=== PATIENT | female | born 1945 | race Caucasian/White ===

== ENCOUNTER 2018-01-26 12:01 | Emergency (ER) | payer MEDICARE ==
[2018-01-26] MEDS ORDERED: LIDOCAINE 1%-EPI 1:100,000 30 ML VIAL SUBMUCOSAL ONE (12:24)
--- NOTE | 2018-01-26 12:32 | ED ---
Fall HPI - General Chief Complaint: Fall Stated Complaint: fall, facial injury Time Seen by Provider: 01/26/18 12:13 Source: patient Mode of arrival: ambulatory - History of Present Illness Initial Comments: Patient is a 72-year-old female presents with a chief complaint of a fall, lip laceration, facial pain. The patient states she had a mechanical fall off of a 4 inch high step. Patient states that she remembers the entire event and did not lose consciousness. Patient has been able to ambulate since the event. She denies any use of blood thinners. She is currently A&O 4. - Related Data Home Medications Medication Instructions Recorded Confirmed Levothyroxine Sodium [Synthroid] 100 mcg PO DAILY 01/26/18 01/26/18 Previous Rx's Medication Instructions Recorded Ibuprofen [Motrin] 600 mg PO Q6HR PRN #20 tab 01/26/18 Allergies Allergy/AdvReac Type Severity Reaction Status Date / Time Penicillins Allergy Rash/Hives Verified 01/26/18 12:10 Review of Systems ROS Statement: Those systems with pertinent positive or pertinent negative responses have been documented in the HPI. ROS Other: All systems not noted in ROS Statement are negative. Past Medical History Past Medical History: Cancer, Diabetes Mellitus, Hyperlipidemia, Hypertension History of Any Multi-Drug Resistant Organisms: None Reported Additional Past Surgical History / Comment(s): Hand sx , Ca of the nose Past Psychological History: No Psychological Hx Reported Smoking Status: Never smoker Past Alcohol Use History: None Reported Past Drug Use History: None Reported General Exam Limitations: no limitations General appearance: alert, in no apparent distress Head exam: Present: normocephalic, other (Patient has a laceration to her bottom left lip, and an abrasion on her nose) Eye exam: Present: normal appearance, PERRL ENT exam: Present: normal exam, mucous membranes moist Neck exam: Present: normal inspection, tenderness (Patient has mild tenderness to palpation of the left paraspinal musculature of her neck) Respiratory exam: Present: normal lung sounds bilaterally. Absent: respiratory distress Cardiovascular Exam: Present: regular rate, normal rhythm GI/Abdominal exam: Present: soft. Absent: distended, tenderness Rectal exam: Present: deferred Extremities exam: Present: normal inspection Back exam: Present: normal inspection Neurological exam: Present: alert, oriented X3, CN II-XII intact, normal gait Psychiatric exam: Present: normal affect, normal mood Skin exam: Present: warm, dry, other (Laceration on lip as described and head examination. Laceration is 1 cm in length and linear. Patient has an abrasion to the right kneecap. No pain with bearing weight.) Course Vital Signs 01/26/18 12:02 Temperature 98.8 F Pulse Rate 85 Respiratory 18 Rate Blood Pressure 182/77 O2 Sat by Pulse 98 Oximetry Medical Decision Making - Medical Decision Making Patient presents with a chief complaint of a fall on concrete. On initial evaluation, vitals are stable, patient in no acute distress. Patient denies use of blood thinners. Neurologic examination is unremarkable, patient ambulatory without assistance. Ports no other injuries. Patient to be evaluated with CT of the head, neck, and facial bones. 1:[address] evaluation of the head, neck, and face shows no acute fractures or intracranial hemorrhages. Patient was reevaluated, the patient's lip was cleaned, there appears to be very superficial laceration that does not require sutures at this time. Other injuries identified R and abrasion to the patient' s right knee, she is able to bear weight at this time, x-rays are not warranted given she does not have pain with bearing weight. At this time, patient stable for discharge. She was instructed to follow up with primary care in 1-2 days, return to the emergency department if new or concerning symptoms arise. Disposition Clinical Impression: Fall Disposition: HOME SELF-CARE Condition: Good Prescriptions: Ibuprofen [Motrin] 600 mg PO Q6HR PRN #20 tab PRN Reason: Pain Is patient prescribed a controlled substance at d/c from ED?: No Referrals: Roque Rossi MD [Primary Care Provider] - 1-2 days
--- NOTE | 2018-01-26 13:41 | CT ---
EXAMINATION TYPE: CT brain nay hernández DATE OF EXAM: 01/26/2018 COMPARISON: NONE HISTORY: pain CT DLP: 1174.7 mGycm Automated exposure control for dose reduction was used. TECHNIQUE: CT scan of the head and cervical spine are performed without contrast. FINDINGS: BRAIN: There are mild, generalized changes of sulcal prominence and ventriculomegaly, compatible with mild atrophic change. There is mild, diffuse periventricular white matter lucency, compatible with c hronic white matter ischemic change. There is no acute focal lesion, mass effect or midline shift sarah ntified. I do not see evidence of intracranial blood. Visualized portions of the paranasal sinuses and mastoids are clear. The bony calvarium is intact. IMPRESSION: 1. NO ACUTE INTRACRANIAL ABNORMALITY. 2. MILD DEGENERATIVE CHANGE CERVICAL SPINE: There are emphysematous changes in the visualized portions of the upper lobes. Prevertebral soft tissues are normal. Vertebral body height and alignment are maintained. Atlantoaxial relationships are normal. 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 There is disc space loss and hypertrophic spondylosis at C3-4 and to a greater extent C5-6 and C6-7. There is uncovertebral joint disease present at these levels. There is mild facet arthropathy on the left at L2-3 as well as L3-4. No protrusion is identified. No fractures identified. IMPRESSION: 1. NO ACUTE OSSEOUS LESION. 2. DEGENERATIVE CHANGE.
--- NOTE | 2018-01-26 13:51 | CT ---
EXAMINATION TYPE: CT facial bones wo con DATE OF EXAM: 01/26/2018 COMPARISON: None. HISTORY: pain CT DLP: 583.7 mGycm Automated exposure control for dose reduction was used. TECHNIQUE: CT scan of the sinuses is performed without contrast, axial images are obtained, coronal r eformatted images are also reviewed. FINDINGS: There is some shotty adenopathy in the deep and superficial cervical chains as well as the submental region. Soft tissues are otherwise unremarkable. Both zygomatic arches are intact. The pterygoid plates are intact. There has been previous maxillary surgery. The orbital concepcion in the concepcion of the maxillary sinuses are intact. No mandibular lesion is seen. IMPRESSION: 1. POSTSURGICAL CHANGE. 2. NO ACUTE OSSEOUS PROCESS. 3. NONSPECIFIC, SHOTTY CERVICAL ADENOPATHY.
[2018-01-26 14:40] VITALS: BP 167/102; PULSE 75; RESP 20; TEMP 98.3
== END 2018-01-26 14:05 | disposition home or self-care (01) ==
LOC: EC 12:01
DX: S01.511A Laceration without foreign body of lip, initial encounter (principal); S00.31XA Abrasion of nose, initial encounter; S80.211A Abrasion, right knee, initial encounter; Z85.828 Personal history of other malignant neoplasm of skin; Z79.899 Other long term (current) drug therapy; Z88.0 Allergy status to penicillin; W10.9XXA Fall (on) (from) unspecified stairs and steps, initial encounter; Y92.009 Unspecified place in unspecified non-institutional (private) residence as the place of occurrence of the external cause
CPT/HCPCS: 70450; 70486; 72125; 99283